=== PATIENT | male | born 1985 | race Caucasian/White ===

== ENCOUNTER → 2016-10-20 | Day surgery (SDC) | payer OTHER ==
[~2016-10-20] VITALS: Ht 172.7 cm; Wt 66.3 kg
[~2016-10-20] MED LIST: ACETAMINOPHEN 1000 MG/100 ML VIAL IV ONE; ACETAMINOPHEN/HYDROcodone 325 MG/5 MG TAB PO PRN; BACT800T5 PO; DEXAMETHASONE SOD PHOS 4 MG/ML VIAL ONE; DILA2TAB2 PO; DO NOT ADM ANY ANTICOAGULANT DRUGS XX PRN; INSULIN HUMAN REGULAR 1,000 UNITS/10 ML VIAL SQ PRN; LACTATED RINGER'S 1000 ML IV SCH; METOPROLOL TARTRATE 25 MG TAB PO PRN; MIDAZOLAM HCL 2 MG/2 ML VIAL ONE; MORPHINE SULFATE 4 MG/ML INJ IV PRN; NORC5TAB PO; ONDANSETRON HCL 4 MG/2 ML VIAL IV PUSH PRN; ONDANSETRON HCL 4 MG/2 ML VIAL ONE; PROM25TA5 PO; PROPOFOL 200 MG/20 ML AMP IV ONE; SODIUM CHLORID 0.9% 500 ML IV SCH; ceFAZolin 1,000 MG/NS 100 ML IV SCH; ePHEDrine/NS 25 MG/5 ML SYR IV ONE; fentaNYL CITRATE 250 MCG/5 ML AMP ONE
--- NOTE | 2016-10-20 06:23 | RADRPT ---
EXAM DATE/TIME: 10/20/2016 05:06 [facility] COMPARISON: CT ABDOMEN & PELVIS W/O CONTRAST, September 22, 2015, 9:52. INDICATIONS : Kidney stone. MEDICAL HISTORY : None. SURGICAL HISTORY : None. ENCOUNTER: Initial ACUITY: 1 day PAIN SCORE: 0/10 LOCATION: Bilateral Abdomen FINDINGS: 2 AP supine views of the abdomen. 1 cm left upper quadrant round calcific density likely correlating with previously identified left renal calculus. Scattered gas in the small bowel and colon. Osseous s tructures within normal limits. CONCLUSION: Left upper quadrant calcific density likely representing a renal calculus. Nonspecific bowel gas moriah gabi. Gaurav Do MD on October 20, 2016 at 6:20 Board Certified Radiologist. This report was verified electronically.
[2016-10-20 06:32] VITALS: BP 118/60; PULSE 58; RESP 16; TEMP 98; O2SAT 99
[2016-10-20 07:14] LABS: AUTOMATED NEUTROPHIL # 4.1 TH/MM3 (1.8-7.7); BASOPHIL # 0.1 TH/MM3 (0-0.2); BASOPHIL % 0.8 % (0.0-2.0); EOSINOPHIL # 0.2 TH/MM3 (0-0.4); EOSINOPHIL % 2.8 % (0.0-4.0); HEMATOCRIT 39.2 % (39.0-51.0); HEMO FLAGS DIFF FINAL; LYMPH % 31.7 % (9.0-44.0); LYMPHOCYTE # 2.4 TH/MM3 (1.0-4.8); MEAN CELL VOLUME 83.9 FL (80.0-100.0); MEAN CORPUSCULAR HEMOGLOBIN 29.7 PG (27.0-34.0); MEAN CORPUSCULAR HGB CONC 35.4 % (32.0-36.0); MONO % 9.5 % (0.0-8.0); NEUT % 55.2 % (16.0-70.0); PLATELET COUNT 247 TH/MM3 (150-450); RED BLOOD COUNT 4.67 MIL/MM3 (4.50-5.90); RED CELL DISTRIBUTION WIDTH 13.2 % (11.6-17.2); WHITE BLOOD COUNT 7.5 TH/MM3 (4.0-11.0)
--- NOTE | 2016-10-20 08:53 | PD.OP ---
Operative Report Date of Surgery: Oct 20, 2016 Preoperative Diagnosis: Left Renal Stone Postoperative Diagnosis: same Procedure: Cystoscopy with left JJ stent insertion followed by Left ESWL Anesthesia: General LMA Surgeon: Kurt Gonzales Store Clerk(s): none Operation and Findings: Celio Nance is a 31 y.o. male with findings of a 2.5cm Left UPJ stone. Decision was made to bring the patient to the operating room to undergo cystoscopy with left double-J stent insertion followed by left extra corporeal shockwave lithotripsy. Risk and benefits were discussed preoperatively and the patient was willing to proceed. Patient was brought to the operating identified by myself as Celio Nance. He was placed in the dorsal lithotomy position, prepped and draped in usual sterile fashion, received preprocedure antibiotics, and general LMA anesthesia was administered. 22 Tu[place] cystoscope was inserted in the bladder serrano cystoscopy did not reveal any abnormalities. The left ureteral orifice was identified and a 5 Tu[place] opening catheter was inserted into the left ureteral orifice and retrograde pyelogram was performed. This demonstrated a large stone located at the left UPJ. An 0.35 sensor wire was passed through the open-ended catheter with a good curl in the kidney and the open-ended catheter was then removed. A 6 [place] 22 cm left double-J stent was placed with a good curl in the kidney and the bladder. The bladder was evacuated and the patient was then placed in the supine position. Under fluoroscopic imaging guidance, the stone was identified. ESWL therapy commenced with initially the first 100 shocks at a power level of 8 in the next 100 shocks at a power level XII. The power level and continued up to a level at 20 and a total of 2500 shocks were given. Good fragmentation the stone was visualized. He tolerated the procedure well and was extubated and transferred occurring in stable condition. Kurt Gonzales DO Oct 20, 2016 08:53
[2016-10-20 10:30] VITALS: BP 138/77; PULSE 60; RESP 16; TEMP 98; O2SAT 100
== END | disposition home or self-care (01) ==
LOC: HSDC 05:22
PROVIDERS: ATTEND Urology
DX: N20.0 Calculus of kidney (principal)
CPT/HCPCS: 00873; 50590; 52332; 74000; 85025; C1769; C2617; J0131; J0690; J1100; J2250; J2405; J3010

== ENCOUNTER 2016-10-31 11:19 | Emergency (ER) | payer OTHER ==
[~2016-10-31] VITALS: Ht 172.7 cm; Wt 63.5 kg
[2016-10-31 11:20] VITALS: BP 124/73; PULSE 68; RESP 24; TEMP 97.8; O2SAT 98
[2016-10-31 11:38] VITALS: BP 127/68; PULSE 78; RESP 18; O2SAT 99
[2016-10-31] MEDS ORDERED: TAMSULOSIN HCL 0.4 MG CAP PO ONE (12:00)
[2016-10-31] MEDS ORDERED: KETOROLAC TROMETHAMINE 30 MG/ML (IVP) VIAL IVP ONE (12:00)
[2016-10-31] MEDS ORDERED: HYDROmorphone HCL PF 2 MG/ML VIAL IM ONE (12:00)
[2016-10-31] MEDS ORDERED: ONDANSETRON HCL 4 MG/2 ML VIAL IVP ONE (12:00)
[2016-10-31] MEDS ORDERED: SODIUM CHLORIDE 0.9% FLUSH 10 ML FLUSH IVF PRN (12:00)
[2016-10-31] MEDS ORDERED: SODIUM CHLOR 0.9% 1000 ML INJ 1,000 ML IV ONE (12:00)
--- NOTE | 2016-10-31 12:16 | PD ---
HPI . Left flank pain Chief Complaint: Flank/Kidney Pain Time Seen by Provider: 12:10 Travel History International Travel<30 days: No Contact w/Intl Traveler<30days: No Traveled to known affect area: No History of Present Illness HPI Patient presents with the acute onset of left flank pain at 9 PM last night. He had one episode of emesis last night. He reports difficulty passing urine. He has hematuria. He denies associated fever. Pertinent recent past medical history is kidney stone. On 10/20, he underwent cystoscopy with stent placement in the left ureter and lithotripsy. Patient reports that he has had intermittent symptoms of kidney colic since that time. He reports that he was treated at [facility] in the recent past for same. He states this he was subsequently told by his urologist that he should come here if he has any further complications. [id number]: Left flank QUALITY: Sharp SEVERITY: Severe DURATION: 15 hours TIMING: Continuous but waxes and wanes CONTEXT: History of kidney stone with cystoscopy, left stent and lithotripsy ASSOCIATED SYMPTOMS: Associated with nausea and vomiting PFSH Past Medical History Cancer: No Cardiovascular Problems: No Diabetes: No Endocrine: No Gastrointestinal Disorders: No Genitourinary: No Hepatitis: No Hiatal Hernia: No Hypertension: No Immune Disorder: No Musculoskeletal: No Neurologic: No Psychiatric: No Reproductive: No Respiratory: No Thyroid Disease: No Past Surgical History AICD: No Joint Replacement: No Oral Surgery: Yes (TEETH EXTRACTION) Pacemaker: No Other Surgery: Yes (plastic surg on face) Social History Alcohol Use: No (UNKNOWN) Tobacco Use: No (1 ppd) Substance Use: Yes (daily cannabis use) Allergies-Medications (Allergen,Severity, Reaction): Coded Allergies: No Known Allergies (Unverified , 10/31/16) Reported Meds & Prescriptions Reported Meds & Active Scripts Active No Active Prescriptions or Reported Medications Review of Systems Except as stated in HPI: all other systems reviewed are Neg General / Constitutional: No: Fever, Chills Gastrointestinal: Positive: Nausea, Vomiting Genitourinary: Positive: Hematuria, Decreased Urinary Output, Flank Pain Physical Exam Narrative GENERAL: Patient is lying on his right side in the position pushing the call rankin in apparent pain. SKIN: Warm and dry. HEAD: Atraumatic. Normocephalic. EYES: Pupils equal and round. ENT: No nasal bleeding or discharge. Mucous membranes pink and moist. NECK: Trachea midline. CARDIOVASCULAR: Regular rate and rhythm. RESPIRATORY: No accessory muscle use. GASTROINTESTINAL: Abdomen soft, non-tender, nondistended. Left CVA tenderness. MUSCULOSKELETAL: No obvious deformities. No edema. NEUROLOGICAL: Awake and alert. No obvious cranial nerve deficits. Motor grossly within normal limits. Normal speech. PSYCHIATRIC: Appropriate mood and affect; insight and judgment normal. Data Data Last Documented VS Vital Signs Date Time Temp Pulse Resp B/P Pulse Ox O2 Delivery O2 Flow Rate FiO2 10/31/16 13:20 79 18 94/60 99 Room Air 10/31/16 11:20 97.8 Orders Urinalysis - C+S If Indicated (10/31/16 11:56) Iv Access Insert/Monitor (10/31/16 11:56) Ketorolac Inj (Toradol Inj) (10/31/16 12:00) Ondansetron Inj (Zofran Inj) (10/31/16 12:00) Sodium Chloride 0.9% Flush (Ns Flush) (10/31/16 12:00) Hydromorphone Pf Inj (Dilaudid Pf Inj) (10/31/16 12:00) Tamsulosin (Flomax) (10/31/16 12:00) Sodium Chlor 0.9% 1000 Ml Inj (Ns 1000 M (10/31/16 12:00) Ct Abd/Pel W/O Iv Contrast (10/31/16 12:10) Urine Culture (10/31/16 12:20) Labs Laboratory Tests Test 10/31/16 12:20 Urine Color YELLOW Urine Turbidity HAZY Urine pH 6.5 Urine Specific [place] 1.020 Urine Protein 100 mg/dL Urine Glucose (UA) NEG mg/dL Urine Ketones NEG mg/dL Urine Occult Blood LARGE Urine Nitrite NEG Urine Bilirubin NEG Urine Urobilinogen LESS THAN 2.0 MG/DL Urine Leukocyte Esterase LARGE Urine RBC /hpf Urine WBC 43 /hpf Urine Squamous Epithelial 1 /hpf Cells Urine Bacteria FEW /hpf Urine Mucus FEW /lpf Microscopic Urinalysis Comment CULTURE INDICATED MDM Medical Decision Making Medical Screen Exam Complete: Yes Emergency Medical Condition: Yes Medical Record Reviewed: Yes (patient underwent cystoscopy with left ureteral stent and lithotripsy on 10/20) Differential Diagnosis Differential diagnosis of flank pain includes but is not limited to kidney stone , pyelonephritis, musculoskeletal pain, PE Narrative Course Patient presents for left flank pain. He has a history of known kidney stone. Last Impressions Abdomen/Pelvis CT 10/31/16 1210 Signed Impressions: Service Date/Time: Monday, October 31, 2016 12:42 - CONCLUSION: Interval placement of a left-sided pigtail catheter within the left renal pelvis. There has been enlargement of the largest stone seen within the lower pole of left kidney. As compared to the prior exam there are multiple new punctate bilateral nonobstructing renal stones.. Lashaun Escobar MD UA shows large occult blood, large leukocyte esterase, 43 white cells. The patient will be treated for infection. He does not have any evidence of obstruction at this time. He is not febrile. Therefore, he is stable for treatment as an outpatient. Diagnosis Primary Impression: Left flank pain Additional Impressions: Nephrolithiasis UTI (urinary tract infection) Qualified Code: N30.01 - Acute cystitis with hematuria Patient Instructions: General Instructions, Urinary Tract Infection in Men (DC) Med/Other Pt SpecificInfo: Prescription(s) given Scripts Promethazine (Phenergan)25 Mg Tab25 Mg PO Q6H PRN (Nausea/Vomiting) #12 TAB Ref 0 Prov:Ester Landaverde MD 10/31/16 Hydrocodone-Acetaminophen (Gervais)5-325 mg Tab1 Tab PO Q4H PRN (PAIN) #12 TAB Ref 0 Prov:Ester Landaverde MD 10/31/16 Sulfamethoxazole-Trimethoprim (Bactrim DS)800-160 Mg Tab1 Tab PO BID #20 TAB Ref 0 Prov:Ester Landaverde MD 10/31/16 Disposition: 01 DISCHARGE HOME Condition: Stable Ester Landaverde MD Oct 31, 2016 12:16
--- NOTE | 2016-10-31 13:02 | RADRPT ---
EXAM DATE/TIME: 10/31/2016 12:42 [facility] COMPARISON: CT ABDOMEN & PELVIS W/O CONTRAST, September 22, 2015, 9:52. INDICATIONS : Left flank pain for one week. ORAL CONTRAST: No oral contrast ingested. RADIATION DOSE: 3.61 CTDIvol (mGy) MEDICAL HISTORY : Renal calculi. SURGICAL HISTORY : Left ureter stent ENCOUNTER: Initial ACUITY: 1 week PAIN SCALE: 5/10 LOCATION: Left flank TECHNIQUE: Volumetric scanning of the abdomen and pelvis was performed. Using automated exposure control and ad justment of the mA and/or kV according to patient size, radiation dose was kept as low as reasonably achievable to obtain optimal diagnostic quality images. FINDINGS: LOWER LUNGS: The visualized lower lungs are clear. LIVER: Homogeneous density without lesion. There is no dilation of the biliary tree. No calcified gallston es. SPLEEN: Normal size without lesion. PANCREAS: Within normal limits. KIDNEYS: There is a left-sided pigtail catheter in place. There has been enlargement of the stone identified w ithin the lower pole of the left kidney now measuring 1 cm in greatest dimension. There punctate size renal stones seen bilaterally. ADRENAL GLANDS: Within normal limits. VASCULAR: There is no aortic aneurysm. BOWEL/MESENTERY: The stomach, small bowel, and colon demonstrate no acute abnormality. There is no free intraperitone al air or fluid. ABDOMINAL WALL: Within normal limits. RETROPERITONEUM: There is no lymphadenopathy. BLADDER: No wall thickening or mass. REPRODUCTIVE: Within normal limits. INGUINAL: There is no lymphadenopathy or hernia. MUSCULOSKELETAL: Within normal limits for patient age. CONCLUSION: Interval placement of a left-sided pigtail catheter within the left renal pelvis. There has been enla rgement of the largest stone seen within the lower pole of left kidney. As compared to the prior exam there are multiple new punctate bilateral nonobstructing renal stones.. Lashaun Escobar MD on October 31, 2016 at 12:57 Board Certified Radiologist. This report was verified electronically.
[2016-10-31 13:05] LABS: BACTERIA, URINE FEW /hpf; BLOOD, URINE LARGE (NEG); COMMENT (UR) CULTURE INDICATED; CULTURE IF INDICATED CULTURE INDICATED; GLUCOSE,URINE NEG (NEG); KETONE, URINE NEG (NEG); MUCUS URINE FEW /lpf (OCC); NITRITE,URINE NEG (NEG); PH, URINE 6.5 (5.0-8.5); SQUAMOUS EPITHELIAL CELL URINE 1 /hpf (0-5); URINE COLOR YELLOW (YELLW/STRAW)
[2016-10-31 13:20] VITALS: BP 94/60; PULSE 79; RESP 18; O2SAT 99
[2016-10-31] MEDS ORDERED: cefTRIAXone INJ 1,000 MG in SODIUM CHLORIDE 0.9% INJ 100 ML IV ONE (14:30)
[2016-10-31] MEDS ORDERED: NORC5TAB PO (14:32)
[2016-10-31] MEDS ORDERED: PROM25TA5 PO (14:32)
[2016-10-31] MEDS ORDERED: BACT800T5 PO (14:32)
[2016-10-31 14:33] VITALS: BP 129/69; PULSE 78; RESP 18; O2SAT 100
[2016-10-31] MEDS ORDERED: MORPHINE SULFATE 8 MG/ML INJ IV PUSH ONE (15:30)
[2016-10-31 15:47] VITALS: BP 133/59; PULSE 75; RESP 18; O2SAT 100
[2016-11-08] MEDS ORDERED: DILA2TAB2 PO (15:24)
== END 2016-10-31 15:59 | disposition home or self-care (01) ==
LOC: NEPA 11:19
DX: N20.0 Calculus of kidney (principal); N30.01 Acute cystitis with hematuria
CPT/HCPCS: 74176; 81001; 87086; 96361; 96372; 96374; 96375; 99284; J0696; J1170; J1885; J2270; J2405; J7030

== ENCOUNTER → 2016-11-24 | Day surgery (SDC) | payer OTHER ==
[~2016-11-24] VITALS: Ht 172.7 cm; Wt 63.7 kg
[~2016-11-24] MED LIST changes: -ACETAMINOPHEN/HYDROcodone 325 MG/5 MG TAB PO PRN; -BACT800T5 PO; +CHLORHEXIDINE GLUCONATE 2 % 1 PACK (2 CLOTHS) TOPICAL PRN; -DEXAMETHASONE SOD PHOS 4 MG/ML VIAL ONE; +DO NOT ADM ANY ANTICOAGULANT DRUGS PRN; -DO NOT ADM ANY ANTICOAGULANT DRUGS XX PRN; +FAMOTIDINE 20 MG/2 ML VIAL ONE; +HYDROmorphone HCL PF 2 MG/ML VIAL IV PUSH PRN; +LACTATED RINGER'S 1000 ML IV PRN; -LACTATED RINGER'S 1000 ML IV SCH; -MORPHINE SULFATE 4 MG/ML INJ IV PRN; +ONDANSETRON HCL 4 MG/2 ML VIAL IV PUSH ONE; -ONDANSETRON HCL 4 MG/2 ML VIAL ONE; +POVIDONE IODINE 5% (ANTISEPSIS KIT) 4 APPLICATIONS EACH NARE PRN; +SODIUM CHLORID 0.9% 500 ML IV PRN; -SODIUM CHLORID 0.9% 500 ML IV SCH; -ePHEDrine/NS 25 MG/5 ML SYR IV ONE; -fentaNYL CITRATE 250 MCG/5 ML AMP ONE
--- NOTE | 2016-11-24 08:25 | RADRPT ---
EXAM DATE/TIME: 11/24/2016 09:06 [facility] COMPARISON: ABDOMEN KUB ONLY, October 20, 2016, 5:06. INDICATIONS : Preop for lithotripsy. Left side renal calculi. MEDICAL HISTORY : Renal calculi. SURGICAL HISTORY : Lithotripsy. ENCOUNTER: Subsequent ACUITY: 1 day PAIN SCORE: 5/10 LOCATION: Left abdomen FINDINGS: Supine view of the abdomen was performed. A left internal ureteral stent has been placed. The stent appears to be in good position extending from the left kidney to the bladder. Large calculus remains evident in the lower pole of the left kidney. The abdominal bowel gas pattern is normal. No abnormal masses or organomegaly is seen. The osseous structures are unremarkable. CONCLUSION: Left internal ureteral stent appears to be in good position. Large left renal calculus. Benjamin Montenegro MD on November 24, 2016 at 8:22 Board Certified Radiologist. This report was verified electronically.
[2016-11-24 08:26] VITALS: BP 108/67; PULSE 63; RESP 20; TEMP 97.9; O2SAT 100
[2016-11-24 08:48] LABS: AUTOMATED NEUTROPHIL # 4.2 TH/MM3 (1.8-7.7); BASOPHIL % 0.7 % (0.0-2.0); EOSINOPHIL # 0.4 TH/MM3 (0-0.4); HEMATOCRIT 39.9 % (39.0-51.0); HEMO FLAGS DIFF FINAL; LYMPH % 27.8 % (9.0-44.0); MEAN CELL VOLUME 83.7 FL (80.0-100.0); MEAN CORPUSCULAR HEMOGLOBIN 29.7 PG (27.0-34.0); MEAN CORPUSCULAR HGB CONC 35.5 % (32.0-36.0); MONO % 9.2 % (0.0-8.0); NEUT % 57.3 % (16.0-70.0); PLATELET COUNT 259 TH/MM3 (150-450); RED BLOOD COUNT 4.76 MIL/MM3 (4.50-5.90); RED CELL DISTRIBUTION WIDTH 13.1 % (11.6-17.2); WHITE BLOOD COUNT 7.3 TH/MM3 (4.0-11.0)
--- NOTE | 2016-11-24 11:24 | PD.OP ---
Operative Report Date of Surgery: Nov 24, 2016 Preoperative Diagnosis: Left lower pole renal stone Postoperative Diagnosis: Same Procedure: Left extraportal shockwave lithotripsy Anesthesia: General LMA Surgeon: Kurt Gonzales Traffic Court Referee(s): None Resident Surgeon: None Operation and Findings: 31-year-old male with history of a large left renal stone status post left extraportal shockwave lithotripsy in the past with cystoscopy left double-J stent insertion. He's here today to undergo left extraportal shockwave lithotripsy. Risk and benefits were discussed and he is willing to proceed. Patient is brought to operating room and identified myself as Celio Nance. He' s placed in the supine position on the operating table, received preprocedure antibiotics, and general LMA anesthesia was administered. The stone was then visualized under fluoroscopy and ESWL therapy then commenced. Patient received a total 2500 shocks with fragmentation the stone visualized on fluoroscopic imaging. He will follow-up in the office in 2 weeks and obtain a KUB x-ray prior. The stone is not fully fragmented and passed he'll need left ureteroscopy laser lithotripsy. Kurt Gonzales DO Nov 24, 2016 11:24
[2016-11-24 12:59] VITALS: BP 138/82; PULSE 55; RESP 16; TEMP 97.6; O2SAT 96
== END | disposition home or self-care (01) ==
LOC: HSDC 07:36
PROVIDERS: ATTEND Urology
DX: N20.0 Calculus of kidney (principal)
CPT/HCPCS: 00873; 50590; 74000; 85025; J0131; J0690; J2250; J2405; J3010; J7120

== ENCOUNTER 2016-12-08 20:50 | Emergency (ER) | payer OTHER ==
[~2016-12-08 20:50] MED LIST changes: -ACETAMINOPHEN 1000 MG/100 ML VIAL IV ONE; -CHLORHEXIDINE GLUCONATE 2 % 1 PACK (2 CLOTHS) TOPICAL PRN; -DO NOT ADM ANY ANTICOAGULANT DRUGS PRN; -FAMOTIDINE 20 MG/2 ML VIAL ONE; -HYDROmorphone HCL PF 2 MG/ML VIAL IV PUSH PRN; -INSULIN HUMAN REGULAR 1,000 UNITS/10 ML VIAL SQ PRN; -LACTATED RINGER'S 1000 ML IV PRN; -METOPROLOL TARTRATE 25 MG TAB PO PRN; -MIDAZOLAM HCL 2 MG/2 ML VIAL ONE; -NORC5TAB PO; -ONDANSETRON HCL 4 MG/2 ML VIAL IV PUSH ONE; -ONDANSETRON HCL 4 MG/2 ML VIAL IV PUSH PRN; -POVIDONE IODINE 5% (ANTISEPSIS KIT) 4 APPLICATIONS EACH NARE PRN; -PROM25TA5 PO; -PROPOFOL 200 MG/20 ML AMP IV ONE; -SODIUM CHLORID 0.9% 500 ML IV PRN; -ceFAZolin 1,000 MG/NS 100 ML IV SCH
[2016-12-08 20:52] VITALS: BP 130/74; PULSE 91; RESP 15; TEMP 98; O2SAT 98
--- NOTE | 2016-12-08 21:40 | PD ---
Physical Exam Time Seen by Provider: 21:38 Narrative 31 y/o male with L flank pain, hx of recurrent kidney stones. Urologist Dr. Gonzales. Left extraportal shockwave lithotripsy on 11/24, hasn't passed any stones. Vital signs reviewed. Seen at triage desk. Awaiting bed placement. Data Data Last Documented VS Vital Signs Date Time Temp Pulse Resp B/P Pulse Ox O2 Delivery O2 Flow Rate FiO2 12/08/16 20:52 98.0 91 15 130/74 98 Room Air [facility] Medical Record Reviewed: Yes Supervised Visit with YUNIEL: Campbell Carpenter December 08, 2016 21:40
[2016-12-08] MEDS ORDERED: SODIUM CHLOR 0.9% 1000 ML INJ 1,000 ML IV SCH (21:49)
[2016-12-08 22:34] LABS: AUTOMATED NEUTROPHIL # 4.4 TH/MM3 (1.8-7.7); BASOPHIL # 0.1 TH/MM3 (0-0.2); BASOPHIL % 0.9 % (0.0-2.0); EOSINOPHIL # 0.3 TH/MM3 (0-0.4); EOSINOPHIL % 3.4 % (0.0-4.0); HEMATOCRIT 38.5 % (39.0-51.0); HEMO FLAGS DIFF FINAL; LYMPH % 36.2 % (9.0-44.0); LYMPHOCYTE # 3.1 TH/MM3 (1.0-4.8); MEAN CELL VOLUME 84.8 FL (80.0-100.0); MEAN CORPUSCULAR HEMOGLOBIN 29.6 PG (27.0-34.0); MEAN CORPUSCULAR HGB CONC 34.9 % (32.0-36.0); MONO % 8.4 % (0.0-8.0); NEUT % 51.1 % (16.0-70.0); PLATELET COUNT 326 TH/MM3 (150-450); RED BLOOD COUNT 4.54 MIL/MM3 (4.50-5.90); RED CELL DISTRIBUTION WIDTH 12.7 % (11.6-17.2); WHITE BLOOD COUNT 8.6 TH/MM3 (4.0-11.0)
--- NOTE | 2016-12-08 22:45 | RADRPT ---
EXAM DATE/TIME: 12/08/2016 22:24 [facility] COMPARISON: CT ABDOMEN & PELVIS W/O CONTRAST, October 31, 2016, 12:42. INDICATIONS : Left flank pain. ORAL CONTRAST: No oral contrast ingested. RADIATION DOSE: 3.51 CTDIvol (mGy) MEDICAL HISTORY : Renal calculi. SURGICAL HISTORY : Renal stents Lithotripsy ENCOUNTER: Initial ACUITY: 1 day PAIN SCALE: 10/10 LOCATION: Left flank TECHNIQUE: Volumetric scanning of the abdomen and pelvis was performed. Using automated exposure control and ad justment of the mA and/or kV according to patient size, radiation dose was kept as low as reasonably achievable to obtain optimal diagnostic quality images. FINDINGS: LOWER LUNGS: The visualized lower lungs are clear. LIVER: Homogeneous density without lesion. There is no dilation of the biliary tree. No calcified gallston es. SPLEEN: Normal size without lesion. PANCREAS: Within normal limits. KIDNEYS: Normal in size and shape. There are 2 small nonobstructing right renal calculi. There is a left doubl e pigtail ureteral stent catheter in place with a mild decrease in the size of the calculus in the lo wer pole central collecting system. The previously noted small calcifications in the central collecti ng system are no longer visualized. There are no definite ureteral calculi. ADRENAL GLANDS: Within normal limits. VASCULAR: There is no aortic aneurysm. BOWEL/MESENTERY: The stomach, small bowel, and colon demonstrate no acute abnormality. There is no free intraperitone al air or fluid. ABDOMINAL WALL: Within normal limits. RETROPERITONEUM: There is no lymphadenopathy. BLADDER: No wall thickening or mass. REPRODUCTIVE: Within normal limits. INGUINAL: There is no lymphadenopathy or hernia. MUSCULOSKELETAL: Within normal limits for patient age. CONCLUSION: 1. Left double pigtail ureteral stent catheter remains in place with mild decrease in the size of the calculus in the lower pole. The previously noted stones in the collecting system and no longer visua lized. There are no definite ureteral calculi. 2. 2 small nonobstructing right renal calculi. Franklin Chang MD on December 08, 2016 at 22:38 Board Certified Radiologist. This report was verified electronically.
[2016-12-08 22:57] LABS: ALKALINE PHOSPHATASE 80 U/L (45-117); ALT (GPT) 17 U/L (12-78); ANION GAP 9 MEQ/L (5-15); AST (GOT) 31 U/L (15-37); BICARBONATE 24.9 MEQ/L (21.0-32.0); BLOOD UREA NITROGEN 15 MG/DL (7-18); CHLORIDE 106 MEQ/L (98-107); GLOMERULAR FILTRATION RATE 75 ML/MIN (>89); POTASSIUM 4.5 MEQ/L (3.5-5.1); SODIUM (NA) 140 MEQ/L (136-145); TOTAL BILIRUBIN ADULT 0.3 MG/DL (0.2-1.0)
--- NOTE | 2016-12-08 23:14 | PD ---
HPI Chief Complaint: Flank/Kidney Pain Time Seen by Provider: 22:09 Travel History International Travel<30 days: No Contact w/Intl Traveler<30days: No Traveled to known affect area: No History of Present Illness HPI Patient is a 31-year-old male who presents to emergency room with complaints of left-sided flank pain. Patient reports that he has been having flank pain for the past 2 days, reports that symptoms have been continuous today. Patient does have history of kidney stones in the past, reports that he does see a urologist Dr. Asif Gonzales in the office. Patient reports that within the past 2 months, he has had 2 surgeries in his kidney stones. Reports no fevers or chills. Patient reports urinary urgency and frequency as well as hematuria. Patient reports concerns for "kidney stone pain" PFSH Past Medical History Cancer: No Cardiovascular Problems: No Diabetes: No Diminished Hearing: No Endocrine: No Gastrointestinal Disorders: No Genitourinary: No Hepatitis: No Hiatal Hernia: No Hypertension: No Immune Disorder: No Kidney Stones: Yes Musculoskeletal: No Neurologic: No Psychiatric: No Reproductive: No Respiratory: No Thyroid Disease: No Tetanus Vaccination: Unknown Influenza Vaccination: No Past Surgical History AICD: No Body Medical Devices: cysto stent in L Genitourinary Surgery: Yes (cysto with stent L , lithotripsy) Joint Replacement: No Oral Surgery: Yes (TEETH EXTRACTION) Pacemaker: No Other Surgery: Yes (plastic surg on face) Social History Alcohol Use: No Tobacco Use: No (1 ppd) Substance Use: Yes (daily cannabis use) Allergies-Medications (Allergen,Severity, Reaction): Coded Allergies: No Known Allergies (Unverified , 12/08/16) Reported Meds & Prescriptions Reported Meds & Active Scripts Active Dilaudid (Hydromorphone HCl) 2 Mg Tab 2 Mg PO Q6H PRN Review of Systems General / Constitutional: No: Fever Eyes: No: Visual changes HENT: No: Headaches Cardiovascular: No: Chest Pain or Discomfort Respiratory: No: Shortness of Breath Gastrointestinal: No: Abdominal Pain Genitourinary: Positive: Urgency, Frequency, Dysuria, Hematuria, Flank Pain Musculoskeletal: No: Pain Skin: No Rash Neurologic: No: Weakness Psychiatric: No: Depression Endocrine: No: Polydipsia Hematologic/Lymphatic: No: Easy Bruising Physical Exam Narrative GENERAL: Patient uncomfortable on exam SKIN: Focused skin assessment warm/dry. HEAD: Atraumatic. Normocephalic. EYES: Pupils equal and round. No scleral icterus. No injection or drainage. ENT: No nasal bleeding or discharge. Mucous membranes pink and moist. NECK: Trachea midline. No JVD. CARDIOVASCULAR: Regular rate and rhythm. No murmur appreciated. RESPIRATORY: No accessory muscle use. Clear to auscultation. Breath sounds equal bilaterally. GASTROINTESTINAL: Abdomen soft, non-tender, nondistended. Patient with left- sided flank pain MUSCULOSKELETAL: No obvious deformities. No clubbing. No cyanosis. No edema. NEUROLOGICAL: Awake and alert. No obvious cranial nerve deficits. Motor grossly within normal limits. Normal speech. PSYCHIATRIC: Appropriate mood and affect; insight and judgment normal. Data Data Last Documented VS Vital Signs Date Time Temp Pulse Resp B/P Pulse Ox O2 Delivery O2 Flow Rate FiO2 12/08/16 21:37 12/08/16 20:52 98.0 91 15 98 Room Air Orders Complete Blood Count With Diff (12/08/16 21:49) Comprehensive Metabolic Panel (12/08/16 21:49) Lipase (12/08/16 21:49) Prothrombin Time / Inr (Pt) (12/08/16 21:49) Act Partial Throm Time (Ptt) (12/08/16 21:49) Urinalysis - C+S If Indicated (12/08/16 21:49) Iv Access Insert/Monitor (12/08/16 21:49) Sodium Chlor 0.9% 1000 Ml Inj (Ns 1000 M (12/08/16 21:49) Ct Abd/Pel W/O Iv Contrast (12/08/16 22:13) Labs Laboratory Tests Test 12/08/16 22:20 White Blood Count 8.6 TH/MM3 Red Blood Count 4.54 MIL/MM3 Hemoglobin 13.4 GM/DL Hematocrit 38.5 % Mean Corpuscular Volume 84.8 FL Mean Corpuscular Hemoglobin 29.6 PG Mean Corpuscular Hemoglobin 34.9 % Concent Red Cell Distribution Width 12.7 % Platelet Count 326 TH/MM3 Mean Platelet Volume 8.1 FL Neutrophils (%) (Auto) 51.1 % Lymphocytes (%) (Auto) 36.2 % Monocytes (%) (Auto) 8.4 % Eosinophils (%) (Auto) 3.4 % Basophils (%) (Auto) 0.9 % Neutrophils # (Auto) 4.4 TH/MM3 Lymphocytes # (Auto) 3.1 TH/MM3 Monocytes # (Auto) 0.7 TH/MM3 Eosinophils # (Auto) 0.3 TH/MM3 Basophils # (Auto) 0.1 TH/MM3 CBC Comment DIFF FINAL Differential Comment Sodium Level 140 MEQ/L Potassium Level 4.5 MEQ/L Chloride Level 106 MEQ/L Carbon Dioxide Level 24.9 MEQ/L Anion Gap 9 MEQ/L Blood Urea Nitrogen 15 MG/DL Creatinine 1.15 MG/DL Estimat Glomerular Filtration 75 ML/MIN Rate Random Glucose 100 MG/DL Calcium Level 8.3 MG/DL Total Bilirubin 0.3 MG/DL Aspartate Amino Transf 31 U/L (AST/SGOT) Alanine Aminotransferase 17 U/L (ALT/SGPT) Alkaline Phosphatase 80 U/L Total Protein 6.5 GM/DL Albumin 3.2 GM/DL Lipase 201 U/L MDM Medical Decision Making Medical Screen Exam Complete: Yes Emergency Medical Condition: Yes Interpretation(s) Vital Signs Date Time Temp Pulse Resp B/P Pulse Ox O2 Delivery O2 Flow Rate FiO2 12/08/16 21:37 12/08/16 20:52 98.0 91 15 130/74 98 Room Air Differential Diagnosis Nephrolithiasis, pyelonephritis, cystitis Narrative Course Patient is a 31-year-old male who presents to emergency room with complaints of left sided flank pain for the past 2 days. Patient does have history of kidney stones, reports dysuria, urinary urgency and frequency as well as hematuria. Reports that he has had 2 urological procedures for his kidney stones within the past 2 months, reports concern for new kidney stone. Patient uncomfortable at bedside. CT of the abdomen and pelvis ordered. Labs as well as UA ordered. AMA: The risks of leaving against medical advice without further evaluation treatment were discussed with the patient. These risks include cardiac dysfunction, cardiac dysrhythmia, possible heart attack, possible stroke or . The patient indicated understanding of these risks and appeared to have the capacity to make this decision. Patient requesting to leave AGAINST MEDICAL ADVICE at this time, patient reports that he is tired and does not want to wait any longer for his lab results. He understands that he may return to the emergency with any time for further evaluation symptoms. Diagnosis Primary Impression: Left flank pain Additional Instructions: You may return to the emergency room at any time for further evaluation of symptoms Disposition: 07 AGAINST MEDICAL ADVICE Condition: Serious Maria Alejandra Duggan DO December 08, 2016 23:14
[2016-12-08 23:53] LABS: APTT (PATIENT) 23.9 SEC (24.3-30.1); PROTHROMBIN TIME - PATIENT 10.6 SEC (9.8-11.6)
== END 2016-12-08 22:56 | disposition left against medical advice (07) ==
LOC: NEPD 20:50
DX: R10.9 Unspecified abdominal pain (principal); R39.15 Urgency of urination; R35.0 Frequency of micturition; R31.9 Hematuria, unspecified; F17.200 Nicotine dependence, unspecified, uncomplicated; Z87.442 Personal history of urinary calculi; Z53.29 Procedure and treatment not carried out because of patient's decision for other reasons
CPT/HCPCS: 74176; 80053; 83690; 85025; 85610; 85730

== ENCOUNTER → 2016-12-16 | Day surgery (SDC) | payer OTHER ==
[~2016-12-16] VITALS: Ht 172.7 cm; Wt 62.3 kg
[~2016-12-16] MED LIST changes: +*MEPERIDINE 25 MG INJ VIAL PERIprocedural Use ONLY ONE; +AMPICILLIN 1 GM/NS 100 ML IV SCH; +BELLADONNA ALKALOIDS/OPIUM 60 MG SUPP RECTAL ONE; +CHLORHEXIDINE GLUCONATE 2 % 1 PACK (2 CLOTHS) TOPICAL PRN; +DEXAMETHASONE SOD PHOS 4 MG/ML VIAL ONE; +DO NOT ADM ANY ANTICOAGULANT DRUGS PRN; +FAMOTIDINE 20 MG/2 ML VIAL ONE; +FUROSEMIDE 40 MG/4 ML VIAL ONE; +GENTAMICIN INJ 240 MG in SODIUM CHLORIDE 0.9% INJ 100 ML IV SCH; +INSULIN HUMAN REGULAR 1,000 UNITS/10 ML VIAL SQ PRN; +IOHEXOL 350 MG/ML 50 ML BTL (for RAD DIAG) ONE; +LACTATED RINGER'S 1000 ML INJ 1,000 ML IV ONE; +LACTATED RINGER'S 1000 ML IV PRN; +METOPROLOL TARTRATE 25 MG TAB PO PRN; +MIDAZOLAM HCL 2 MG/2 ML VIAL ONE; +MORPHINE SULFATE 4 MG/ML INJ IV PRN; +NEOSTIGMINE 3 MG/3 ML SYR IV ONE; +ONDANSETRON HCL 4 MG/2 ML VIAL IV PUSH ONE; +ONDANSETRON HCL 4 MG/2 ML VIAL IV PUSH PRN; +POVIDONE IODINE 5% (ANTISEPSIS KIT) 4 APPLICATIONS EACH NARE PRN; +PROPOFOL 200 MG/20 ML AMP IV ONE; +SODIUM CHLORID 0.9% 500 ML IV PRN; +oxyCODONE/ACETAMINOPHEN 7.5 MG/325 MG TAB PO PRN
[2016-12-16 06:30] VITALS: BP 112/68; PULSE 58; RESP 18; TEMP 97.5; O2SAT 98
[2016-12-16 06:57] LABS: AUTOMATED NEUTROPHIL # 5.3 TH/MM3 (1.8-7.7); BASOPHIL # 0.1 TH/MM3 (0-0.2); BASOPHIL % 1.1 % (0.0-2.0); EOSINOPHIL # 0.3 TH/MM3 (0-0.4); HEMATOCRIT 39.8 % (39.0-51.0); HEMO FLAGS DIFF FINAL; LYMPH % 27.1 % (9.0-44.0); LYMPHOCYTE # 2.5 TH/MM3 (1.0-4.8); MEAN CORPUSCULAR HEMOGLOBIN 29.4 PG (27.0-34.0); MEAN CORPUSCULAR HGB CONC 34.6 % (32.0-36.0); MONO % 10.7 % (0.0-8.0); NEUT % 58.1 % (16.0-70.0); PLATELET COUNT 279 TH/MM3 (150-450); RED BLOOD COUNT 4.68 MIL/MM3 (4.50-5.90); RED CELL DISTRIBUTION WIDTH 12.7 % (11.6-17.2); WHITE BLOOD COUNT 9.1 TH/MM3 (4.0-11.0)
--- NOTE | 2016-12-16 09:24 | PD.OP ---
Operative Report Date of Surgery: December 16, 2016 Preoperative Diagnosis: Left renal calculi Postoperative Diagnosis: Same Procedure: Cystoscopy with left ureteroscopy and laser lithotripsy, stone extraction with left double-J stent exchange Anesthesia: Gen. LMA Surgeon: Kurt Gonzales Honest [employer] Crew Member(s): None Resident Surgeon: None Operation and Findings: 31 year-old male with history of left UPJ stone who underwent extraportal shockwave lithotripsy in the past. Patient here today to undergo left ureteroscopy laser lithotripsy and stone extraction with left double-J stent exchange. Risk and benefits were discussed preoperatively and he is willing to proceed. Patient was brought to the operating room and identified myself as Celio Nance. His placement dorsal lithotomy position, prepped and draped in usual sterile fashion, received preprocedure antibiotics, and general LMA anesthesia was administered. 22 Hungarian scope was inserted the bladder and the left ureter stent was identified. Using an alligator grasper, the stent was brought out to the urethral meatus. A 0.35 sensor wire was then passed through the stent with a good curl in the kidney and the stent was removed. A navigator ureteral access sheath was then passed over the wire and placed in good position and the wire was removed. Using the StorSidelines flexible ureteroscope the stones were identified within the lower pole and fragmented with the 200 laser fiber setting of 10 and 1000. Good fragmentation of the stone was visualized. Using the Nitinol basket, multiple retrievals of stone burden was removed from the left lower pole. At the completion of procedure was a few small fragments which were too small to grasp with the basket. The 0.35 sensor was passed through the ureteral access sheath and left with a good curl in the kidney. The ureteral access sheath was removed. The cystoscope was backloaded over the wire and then a 6 Hungarian 22 cm left double-J stent was placed in good position and the string was left taped to the penis. The patient will come to clinic tomorrow and have the stent pulled. Stone fragments were sent for analysis. He tolerated the procedure well. Kurt Gonzales DO December 16, 2016 09:24
[2016-12-16 10:30] VITALS: TEMP 98.5
[2016-12-16 10:55] VITALS: BP 137/74; PULSE 69; RESP 18; O2SAT 100
--- NOTE | 2017-01-20 11:18 | MH ---
cc: ROSE BRICENO DATE OF ADMISSION 12/16/2016 HISTORY OF PRESENT ILLNESS Mr. Nance is a 31-year-old male with history of a 1.5 left lower pole renal stone. He underwent cystoscopy with left double-J stent insertion followed by extracorporeal shock wave lithotripsy on 10/20/2016. His follow-up CT scan demonstrated some fragmentation of the stone, but it was not complete. He had passed some fragments, but he had residual stone burden and he will require ureteroscopy with laser lithotripsy, stone extraction and stent exchange. PAST MEDICAL HISTORY His medical history includes kidney stones. PAST SURGICAL HISTORY No past surgical history is noted other than the recent ESWL with a stent insertion. FAMILY HISTORY Notable for diabetes mellitus. SOCIAL HISTORY He does smoke and uses marijuana at times, but denies drinking. ALLERGIES He has NO KNOWN DRUG ALLERGIES. REVIEW OF SYSTEMS He notes left-sided flank pain with urgency, some hematuria at times with dysuria. The other review of systems was performed and they were negative except per the HPI. PHYSICAL EXAM VITAL SIGNs: He is afebrile, vital signs stable. GENERAL: He is a well-developed, well-nourished 31-year-old male in no acute distress. HEENT: Normocephalic, atraumatic. Pupils equal round react to light. Extraocular movements intact. NECK: Supple. HEART: Regular rate and rhythm. LUNGS: Clear. ABDOMEN: Soft, nontender and nondistended. GENITOURINARY: Normal phallus. Testes descended. EXTREMITIES: Show no cyanosis, clubbing or edema. ASSESSMENT This is a 31-year-old male with residual stone burden after extracorporeal shock wave lithotripsy. He will require ureteroscopy, laser lithotripsy and stone extraction with stent exchange. Rose CARRERA/DJL /10:59 AM /11:13 AM
== END | disposition home or self-care (01) ==
LOC: HSDC 05:38
PROVIDERS: ATTEND Urology
DX: N20.0 Calculus of kidney (principal)
CPT/HCPCS: 00918; 52356; 74420; 82370; 85025; 88300; C1726; C1769; C2617; J0290; J1100; J1580; J1940; J2175; J2250; J2405; J2710; J3010; J7120; Q9967

== ENCOUNTER 2016-12-17 13:46 | Emergency (ER) | payer OTHER ==
[~2016-12-17] VITALS: Ht 172.7 cm; Wt 67.0 kg
[~2016-12-17 13:46] MED LIST changes: -*MEPERIDINE 25 MG INJ VIAL PERIprocedural Use ONLY ONE; -AMPICILLIN 1 GM/NS 100 ML IV SCH; -BELLADONNA ALKALOIDS/OPIUM 60 MG SUPP RECTAL ONE; -CHLORHEXIDINE GLUCONATE 2 % 1 PACK (2 CLOTHS) TOPICAL PRN; -DEXAMETHASONE SOD PHOS 4 MG/ML VIAL ONE; -DO NOT ADM ANY ANTICOAGULANT DRUGS PRN; -FAMOTIDINE 20 MG/2 ML VIAL ONE; -FUROSEMIDE 40 MG/4 ML VIAL ONE; -GENTAMICIN INJ 240 MG in SODIUM CHLORIDE 0.9% INJ 100 ML IV SCH; -INSULIN HUMAN REGULAR 1,000 UNITS/10 ML VIAL SQ PRN; -IOHEXOL 350 MG/ML 50 ML BTL (for RAD DIAG) ONE; -LACTATED RINGER'S 1000 ML INJ 1,000 ML IV ONE; -LACTATED RINGER'S 1000 ML IV PRN; -METOPROLOL TARTRATE 25 MG TAB PO PRN; -MIDAZOLAM HCL 2 MG/2 ML VIAL ONE; -MORPHINE SULFATE 4 MG/ML INJ IV PRN; -NEOSTIGMINE 3 MG/3 ML SYR IV ONE; -ONDANSETRON HCL 4 MG/2 ML VIAL IV PUSH ONE; -ONDANSETRON HCL 4 MG/2 ML VIAL IV PUSH PRN; -POVIDONE IODINE 5% (ANTISEPSIS KIT) 4 APPLICATIONS EACH NARE PRN; -PROPOFOL 200 MG/20 ML AMP IV ONE; -SODIUM CHLORID 0.9% 500 ML IV PRN; -oxyCODONE/ACETAMINOPHEN 7.5 MG/325 MG TAB PO PRN
[2016-12-17 13:48] VITALS: BP 129/65; PULSE 88; RESP 24; TEMP 98.8; O2SAT 98
--- NOTE | 2016-12-17 13:56 | PD ---
Physical Exam Date Seen by Provider: December 17, 2016 Time Seen by Provider: 13:53 Narrative 31 YOWM HERE FOR URETERAL STENT REMOVAL. H/O KIDNEY STONE. PT OF DR BRICENO. NO N /V/,ABD PAIN VSS wating for bed asignment Data Data Last Documented VS Vital Signs Date Time Temp Pulse Resp B/P Pulse Ox O2 Delivery O2 Flow Rate FiO2 12/17/16 13:48 98.8 88 24 129/65 98 Room Air [facility] Medical Record Reviewed: No Supervised Visit with YUNIEL: James Fuentes December 17, 2016 13:56
--- NOTE | 2016-12-17 15:26 | PD ---
HPI Chief Complaint: Complaint Time Seen by Provider: 15:25 Travel History International Travel<30 days: No Contact w/Intl Traveler<30days: No Traveled to known affect area: No History of Present Illness HPI 31 year old male presents to the emergency department requesting his ureteral stent to be removed. He had cystoscopy with left uteroscopy and laser lithotripsy, stone extraction with left double J stent exchange done yesterday by Dr. Krut Gonzales. He denies any complications. He is taking pain medication with good relief. He denies any back pain or abdominal pain. No nausea or vomiting. He was to follow-up in the office to have the stent pulled today. He states he showed up there at 1 PM and there was a sign stating the office closed at noon so he came to the emergency department. PFSH Past Medical History Cancer: No Cardiovascular Problems: No Diabetes: No Diminished Hearing: No Endocrine: No Gastrointestinal Disorders: No Genitourinary: No Hepatitis: No Hiatal Hernia: No Hypertension: No Immune Disorder: No Kidney Stones: Yes Musculoskeletal: No Neurologic: No Psychiatric: No Reproductive: No Respiratory: No Thyroid Disease: No Past Surgical History Abdominal Surgery: No AICD: No Body Medical Devices: cysto stent in L Cardiac Surgery: No Ear Surgery: No Endocrine Surgery: No Eye Surgery: No Genitourinary Surgery: Yes (cysto with stent L , lithotripsy) Gynecologic Surgery: No Joint Replacement: No Oral Surgery: Yes (TEETH EXTRACTION) Pacemaker: No Thoracic Surgery: No Other Surgery: Yes (plastic surg on face) Social History Alcohol Use: No Tobacco Use: No (1 ppd) Substance Use: Yes (daily cannabis use) Allergies-Medications (Allergen,Severity, Reaction): Coded Allergies: No Known Allergies (Unverified , 12/17/16) Reported Meds & Prescriptions Reported Meds & Active Scripts Active Dilaudid (Hydromorphone HCl) 2 Mg Tab 2 Mg PO Q6H PRN Review of Systems Except as stated in HPI: all other systems reviewed are Neg Physical Exam Narrative GENERAL: Well-nourished, well-developed male patient, ambulatory and in no acute distress. Afebrile. SKIN: Focused skin assessment warm/dry. HEAD: Normocephalic. EYES: No scleral icterus. No injection or drainage. NECK: Supple, trachea midline. No JVD or lymphadenopathy. CARDIOVASCULAR: Regular rate and rhythm without murmurs, gallops, or rubs. RESPIRATORY: Breath sounds equal bilaterally. No accessory muscle use. Lung sounds are clear to auscultation. GASTROINTESTINAL: Abdomen soft, non-tender, nondistended. MUSCULOSKELETAL: No cyanosis, or edema. BACK: Nontender without obvious deformity. No CVA tenderness. Data Data Last Documented VS Vital Signs Date Time Temp Pulse Resp B/P Pulse Ox O2 Delivery O2 Flow Rate FiO2 12/17/16 15:33 78 17 12/17/16 13:48 98.8 129/65 98 Room Air MDM Medical Decision Making Medical Screen Exam Complete: Yes Emergency Medical Condition: Yes Medical Record Reviewed: Yes Differential Diagnosis ureteral stent removal vs. nephrolithiasis vs. medical clearance Narrative Course 31-year-old male presents to the emergency department requesting left ureteral stent removed. Patient was to go to Dr. Gonzales's office today, but was closed when he arrived. Call is placed to Dr. Gonzales. I spoke to Dr. Viera, urologist information technology coordinator. He states that I can remove the ureteral stent. He would like to be called only if there is any complications. Before I could return in the patient's room to remove it, the patient had already removed it. He had no difficulty and has no complaints. Patient is stable for discharge. The patient was discharged in stable condition with instructions, including return instructions and follow up instructions. Diagnosis Primary Impression: Encounter for removal of ureteral stent Referrals: Kurt Gonzales DO call for appointment Patient Instructions: General Instructions, Ureteral Stent Placement (DC) Additional Instructions: Follow-up with Dr. Gonzales. Return to the emergency department for any acute worsening of symptoms Med/Other Pt SpecificInfo: No Change to Meds Disposition: 01 DISCHARGE HOME Condition: Stable Maryjane Ervin FELIPE December 17, 2016 15:25
[2016-12-17 16:19] VITALS: BP 120/77; TEMP 97.8
== END 2016-12-17 16:18 | disposition home or self-care (01) ==
LOC: NEPD 13:46
DX: Z46.6 Encounter for fitting and adjustment of urinary device (principal); Z87.442 Personal history of urinary calculi; F17.210 Nicotine dependence, cigarettes, uncomplicated
CPT/HCPCS: 99283